=== PATIENT | male | born 1970 | race African-American/Black ===

== ENCOUNTER 2017-04-24 12:08 | Emergency (ER) | payer OTHER ==
[2017-04-24 12:13] VITALS: BP 122/82; TEMP 97.9; BMI 26.9
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
--- NOTE | 2017-04-24 16:49 | DI ---
Exam. Lumbar spine, five views History. Pain, injury FINDINGS Lateral view confirms straightening of the lumbar lordosis. Vertebral body heights normal. Oblique views show no spondylolysis. There is minimal narrowing of the T11-T12 intervertebral disc space with marginal osteophyte. Impression 1. No spondylolysis or spondylolisthesis. Some straightening lumbar lordosis may be due to myofasci al spasm or strain. 2. No acute fracture. 3. Minimal degenerate change and narrowing of the T10-T11 and T11-T12 intervertebral disc spaces wit h osteophyte formation.
== END 2017-04-24 13:56 | disposition home or self-care (01) ==
LOC: ED 12:08
DX: S39.012A Strain of muscle, fascia and tendon of lower back, initial encounter (principal); X50.9XXA Other and unspecified overexertion or strenuous movements or postures, initial encounter; F17.210 Nicotine dependence, cigarettes, uncomplicated
CPT/HCPCS: 99283